=== PATIENT | male | born 2000 | race Caucasian/White ===

== ENCOUNTER 2024-07-12 22:53 | Emergency (ER) | payer OTHER ==
[~2024-07-12] VITALS: Ht 185.4 cm; Wt 120.3 kg
[2024-07-12 23:04] VITALS: BP 147/89; PULSE 98; RESP 16; O2SAT 99
[2024-07-13] MEDS ORDERED: AMOX875T4 PO (01:52)
[2024-07-13] MEDS ORDERED: IBUP-1456 PO (01:52)
[2024-07-13] MEDS: KETOROLAC TROMETH 60MG/2ML VIAL IM ONE (02:02)
[2024-07-13] MEDS: cefTRIAXone SOD 1,000 MG VL IM ONE (02:02)
== END 2024-07-13 02:06 | disposition home or self-care (01) ==
LOC: ER 22:53
DX: L05.91 Pilonidal cyst without abscess (principal); Z79.1 Long term (current) use of non-steroidal anti-inflammatories (NSAID)
CPT/HCPCS: 96372; 99284; J0696; J1885